=== PATIENT | female | born 1970 | race Hispanic/Latino ===

== ENCOUNTER 2016-10-21 22:38 | Emergency (ER) | payer SELFPAY ==
[~2016-10-21] VITALS: Ht 165.1 cm; Wt 72.6 kg
[~2016-10-21 22:38] MED LIST: FERR325C PO; LORA0.5T PO; OMEP20TA2 PO
--- NOTE | 2016-10-21 22:57 | ED General ---
General Chief Complaint: Chest Pain Stated Complaint: IN AND OUT OF CONSCIOUSNESS Source of Information: Patient Exam Limitations: Language Barrier (interpretation by 18-year-old daughter.), Other History of Present Illness Time Seen by Provider: 22:50 Initial Comments Patient presents to ER with her 18-year-old daughter acting as screw down. She reports going a phasic but responsive to her name and commands. She does this several times a year according to the daughter as result of panic attacks. The patient is complaining of some low back pain along the left flank. She denies shortness of breath, chest pain, fever, chills, nausea, vomiting dysuria, constipation, diarrhea, anorexia. Allergies and Home Medications Allergies Coded Allergies: No Known Drug Allergies (Unverified , 07/28/11) Home Medications Lorazepam 0.5 Mg Tablet, 1 EACH PO BID PRN for ANXIETY, #10 Prescribed by: ISIDRO COOPER on 09/28/142111 Omeprazole 20 Mg Tablet.dr, 20 MG PO, (Reported) Constitutional: No chills, No fever, No malaise EENTM: No throat swelling, No vision loss Respiratory: No cough, No dyspnea on exertion, No short of breath Cardiovascular: No chest pain, No edema, No syncope Gastrointestinal: No abdominal pain, No constipation, No diarrhea, No nausea Genitourinary: No dysuria, No incontinence Musculoskeletal: back pain (mostly on left Low thoracic and lumbar region) Skin: No pruritus, No rash Psychiatric/Neurological: Anxiety (Hx of Panic D/O.) Past Osjwomr-Ycculc-Rnwmbx Hx Patient Social History Alcohol Use: Denies Use Recreational Drug Use: No Smoking Status: Never a Smoker Surgeries HX Surgeries: Yes Surgeries: Gallbladder Respiratory Hx Respiratory Disorders: No Cardiovascular Hx Cardiac Disorders: No Neurological Hx Neurological Disorders: No Gastrointestinal Hx Gastrointestinal Disorders: Yes Gastrointestinal Disorders: Gastroesophageal Reflux Musculoskeletal Hx Musculoskeletal Disorders: No Endocrine Hx Endocrine Disorders: No HEENT HX ENT Disorders: No Cancer Hx Cancer: No Psychosocial Hx Psychiatric Problems: No Integumentary HX Skin/Integumentary Disorder: No Blood Transfusions Hx Blood Disorders: No Physical Exam Vital Signs Vital Sign - Last 12Hours 10/21/16 22:38 Temp 98.1 Pulse 80 Resp 16 B/P (MAP) 110/81 Pulse Ox 95 O2 Delivery Room Air Capillary Refill : General Appearance: No Apparent Distress, WD/WN Eyes: Bilateral Eye EOMI, Bilateral Eye Normal Inspection, Bilateral Eye PERRL HEENT: PERRL/EOMI, Pharynx Normal Neck: Full Range of Motion, Normal Inspection, Non Tender Respiratory: Chest Non Tender, Lungs Clear, Normal Breath Sounds Cardiovascular: Regular Rate, Rhythm, No Edema, No Murmur, Normal Peripheral Pulses Gastrointestinal: Normal Bowel Sounds, No Organomegaly, Non Tender, Soft Back: Normal Inspection, No Vertebral Tenderness, CVA Tenderness (L) (to percussion) Extremity: Normal Capillary Refill, Normal Inspection, Non Tender Neurologic/Psychiatric: Alert, Oriented x3, No Motor/Sensory Deficits, watch hairspring assembler II- XII Norm as Tested, Aphasia (initially then after 15mins she became communicative and interactive at baseline.) Skin: Normal Color, Warm/Dry Lymphatic: No Adenopathy Progress/Results/Core Measures Results/Orders Lab Results Laboratory Tests Test 10/21/16 22:48 10/21/16 23:22 Range/Units White Blood Count 9.5 4.3-11.0 10^3/uL Red Blood Count 4.56 4.35-5.85 10^6/uL Hemoglobin 10.4 L 11.5-16.0 G/DL Hematocrit 34 L 35-52 % Mean Corpuscular Volume 74 L 80-99 FL Mean Corpuscular Hemoglobin 23 L 25-34 PG Mean Corpuscular Hemoglobin Concent 31 L 32-36 G/DL Red Cell Distribution Width 22.3 H 10.0-14.5 % Platelet Count 428 H 130-400 10^3/uL Mean Platelet Volume 9.7 7.4-10.4 FL Neutrophils (%) (Auto) 60 42-75 % Lymphocytes (%) (Auto) 33 12-44 % Monocytes (%) (Auto) 6 0-12 % Eosinophils (%) (Auto) 1 0-10 % Basophils (%) (Auto) 0 0-10 % Neutrophils # (Auto) 5.7 1.8-7.8 X 10^3 Lymphocytes # (Auto) 3.2 1.0-4.0 X 10^3 Monocytes # (Auto) 0.6 0.0-1.0 X 10^3 Eosinophils # (Auto) 0.1 0.0-0.3 10^3/uL Basophils # (Auto) 0.0 0.0-0.1 10^3/uL Sodium Level 139 135-145 MMOL/L Potassium Level 3.7 3.6-5.0 MMOL/L Chloride Level 106 98-107 MMOL/L Carbon Dioxide Level 23 21-32 MMOL/L Anion Gap 10 5-14 MMOL/L Blood Urea Nitrogen 16 7-18 MG/DL Creatinine 1.04 0.60-1.30 MG/DL Estimat Glomerular Filtration Rate 58 BUN/Creatinine Ratio 15 Glucose Level 107 H 70-105 MG/DL Calcium Level 9.2 8.5-10.1 MG/DL Total Bilirubin 0.4 0.1-1.0 MG/DL Aspartate Amino Transf (AST/SGOT) 20 5-34 U/L Alanine Aminotransferase (ALT/SGPT) 23 0-55 U/L Alkaline Phosphatase 89 40-136 U/L Total Protein 7.2 6.4-8.2 G/DL Albumin 4.2 3.2-4.5 G/DL Urine Color YELLOW Urine Clarity SLIGHTLY CLOUDY Urine pH 6.5 5-9 Urine Specific [place] 1.010 L 1.016-1.022 Urine Protein NEGATIVE NEGATIVE Urine Glucose (UA) NEGATIVE NEGATIVE Urine Ketones NEGATIVE NEGATIVE Urine Nitrite NEGATIVE NEGATIVE Urine Bilirubin NEGATIVE NEGATIVE Urine Urobilinogen NORMAL NORMAL MG/DL Urine Leukocyte Esterase 1+ H NEGATIVE Urine RBC (Auto) NEGATIVE NEGATIVE Urine RBC NONE /HPF Urine WBC 2-5 /HPF Urine Squamous Epithelial Cells 25-50 H /HPF Urine Crystals NONE /LPF Urine Bacteria FEW H /HPF Urine Casts NONE /LPF Urine Mucus NEGATIVE /LPF Urine Yeast FEW H /HPF Urine Culture Indicated NO My Orders Orders - MALIK GIBSON Cbc With Automated Diff (10/21/16 22:58) Comprehensive Metabolic Panel (10/21/16 22:58) Ua Culture If Indicated (10/21/16 22:58) Ekg Tracing (10/21/16 22:58) Vital Signs/I&O Vital Sign - Last 12Hours 10/21/16 10/21/16 22:38 22:38 Temp 98.1 Pulse 80 Resp 16 B/P (MAP) 110/81 Pulse Ox 95 O2 Delivery Room Air Room Air Progress Note : Progress Note urine and blood examination was unremarkable. Patient made a remarkable recovery with just a few minutes of resting in the ER. She should be appropriate to follow up with her primary care physician for further management of her panic disorder. ECG EKG : Rhythm: Normal Sinus Intervals: Normal ECG Comparisson: No Previous ECG Available ECG Impression: Normal Departure Impression Impression: Primary Impression: Panic attack Additional Impression: Left flank pain Disposition: 01 HOME, SELF-CARE Condition: Improved Departure-Patient Inst. Decision time for Depature: 23:53 Referrals: SANDY GARCIA DO (PCP/Family) Primary Care Physician Patient Instructions: Panic Disorder (DC) Add. Discharge Instructions: You should follow up with your primary care physician this week if possible for continued management of your back pain and panic attacks. You should also asked them to help you risk stratify your history of chest pains for cardiac risk factors. If you're having new or worsening symptoms You should return to the ER or follow up with your primary care physician which ever is more appropriate. All discharge instructions reviewed with patient and/or family. Voiced understanding. Copy Copies To 1: SANDY GARCIA TITUS J Oct 21, 2016 22:57
[2016-10-21 23:07] LABS: BASOPHILS % (AUTO) 0 % (0-10); EOSINOPHILS # (AUTO) 0.1 10^3/uL (0.0-0.3); EOSINOPHILS % (AUTO) 1 % (0-10); LYMPHOCYTES # (AUTO) 3.2 X 10^3 (1.0-4.0); LYMPHOCYTES % (AUTO) 33 % (12-44); MEAN CORPUSCULAR HEMOGLOBIN 23 PG (25-34); MEAN CORPUSCULAR HGB CONC 31 G/DL (32-36); MEAN CORPUSCULAR VOLUME 74 FL (80-99); MEAN PLATELET VOLUME 9.7 FL (7.4-10.4); MONOCYTES # (AUTO) 0.6 X 10^3 (0.0-1.0); MONOCYTES % (AUTO) 6 % (0-12); NEUTROPHILS # (AUTO) 5.7 X 10^3 (1.8-7.8); NEUTROPHILS % (AUTO) 60 % (42-75); PLATELET COUNT 428 10^3/uL (130-400); RED BLOOD COUNT 4.56 10^6/uL (4.35-5.85); RED CELL DISTRIBUTION WIDTH 22.3 % (10.0-14.5); WHITE BLOOD COUNT 9.5 10^3/uL (4.3-11.0)
[2016-10-21 23:26] LABS: POTASSIUM 3.7 MMOL/L (3.6-5.0)
[2016-10-21 23:27] LABS: ALBUMIN 4.2 G/DL (3.2-4.5); BILIRUBIN,TOTAL 0.4 MG/DL (0.1-1.0); CALCIUM 9.2 MG/DL (8.5-10.1); CREATININE SERUM 1.04 MG/DL (0.60-1.30); TOTAL PROTEIN 7.2 G/DL (6.4-8.2)
[2016-10-21 23:30] LABS: BILIRUBIN,URINE NEGATIVE (NEGATIVE); KETONES,URINE NEGATIVE (NEGATIVE); LEUKOCYTE ESTERASE ,URINE 1+ (NEGATIVE); NITRITE,URINE NEGATIVE (NEGATIVE); PH,URINE 6.5 (5-9); PROTEIN,URINE NEGATIVE (NEGATIVE); UROBILINOGEN,URINE NORMAL (NORMAL)
[2016-10-21 23:37] LABS: SQUAMOUS EPITHELIAL CELL,UR 25-50 /HPF; YEAST,URINE FEW /HPF
[2016-10-22 00:09] VITALS: BP 112/70
== END 2016-10-22 00:10 | disposition home or self-care (01) ==
LOC: EDUNIT# 22:43 → ER 22:45
DX: F41.0 Panic disorder [episodic paroxysmal anxiety] (principal); R10.32 Left lower quadrant pain
CPT/HCPCS: 36415; 80053; 81000; 85025; 93005